=== PATIENT | male | born 1990 | race Caucasian/White ===

== ENCOUNTER 2019-07-09 05:56 | Day surgery (SDC) | payer MEDICAID ==
[2019-07-09] VITALS (9 sets, daily range): BP systolic 117–155; BP diastolic 57–75
[~2019-07-09] VITALS: Ht 172.7 cm; Wt 61.1 kg
[~2019-07-09 05:56] MED LIST: DIAZ10TA PO; DIVA125T2 PO; POLY17PO10 PO; TRIA15CR61 TOP; famotidine 20mg tablet PO ONE; ringers solution, lacted 1,000 ML IV SCH
[2019-07-09] MEDS ORDERED: MIDAZOLAM HCL 10 MG/5 ML UD cup ONE (07:13)
[2019-07-09] MEDS ORDERED: fentaNYL/PF 50MCG/1 ML 2ML syringe ONE (07:26)
[2019-07-09] MEDS ORDERED: propofol inj 20 ML IV ONE ×2 (07:28)
[2019-07-09] MEDS ORDERED: rocuronium 10mg/ml inj IV ONE (07:28)
[2019-07-09] MEDS ORDERED: dexamethasone sod phosphate 4mg/ml inj. ONE (08:00)
[2019-07-09] MEDS ORDERED: morphine 4 MG/ML inj SYRINge IV PRN ×2 (08:30)
[2019-07-09] MEDS ORDERED: ringers solution, lacted 1,000 ML IV SCH (08:30)
[2019-07-09] MEDS ORDERED: proCHLORperazine 10 MG/2 ml inj IV PRN (08:30)
[2019-07-09] MEDS ORDERED: ondansetron/PF 4mg/2ml inj IV PRN (08:30)
[2019-07-09] MEDS ORDERED: meperidine/PF 25mg/ml syringe IV PRN ×3 (08:30)
[2019-07-09 08:33] LABS: BASOPHILS % (AUTO) 0.3 % (0-1); EOSINOPHILS % (AUTO) 0.7 % (0-6); LYMPHOCYTES # (AUTO) 2.1 X10'3 (1.1-4.8); LYMPHOCYTES % (AUTO) 43.2 % (21-51); MEAN CORPUSCULAR HEMOGLOBIN 29.9 PG (27.0-31.0); MEAN CORPUSCULAR HGB CONC 33.9 g/dL (33.0-36.5); MEAN CORPUSCULAR VOLUME 88.3 FL (78-98); MEAN PLATELET VOLUME 10.5 FL (7.4-10.4); MONOCYTES # (AUTO) 0.5 X10'3 (0-0.9); MONOCYTES % (AUTO) 10.6 % (2-12); NEUTROPHILS # (AUTO) 2.2 X10'3 (1.8-7.7); NEUTROPHILS % (AUTO) 45.2 % (42-75); PRE OP HEMATOCRIT 43.3 % (42.0-52.0); PRE OP HEMOGLOBIN 14.7 g/dL (14.0-17.9); PRE OP PLATELET COUNT 111 X10'3 (140-440); RED CELL DISTRIBUTION WIDTH 13.5 % (11.5-14.5)
[2019-07-09 08:50] LABS: ALBUMIN 3.8 G/DL (3.4-5.0); ALBUMIN/GLOBULIN RATIO 1.2 (1.1-1.5); ALKALINE PHOSPHATASE 49 IU/L (46-116); BLOOD UREA NITROGEN 19 MG/DL (7-18); BUN/CREATININE RATIO 25.3 (5.4-32.0); CALCIUM 8.8 MG/DL (8.5-10.1); CHLORIDE 108 MMOL/L (99-107); CREATININE 0.75 MG/DL (0.60-1.10); PRE OP ALT 12 U/L (30-65); PRE OP ANION GAP 9 (8-16); PRE OP AST 7 U/L (10-37); PRE OP BILIRUB, TOTAL 2.1 MG/DL (0.0-1.0); PRE OP GLUCOSE 97 MG/DL (70-104); PRE OP POTASSIUM 4.2 MMOL/L (3.4-5.1); PRE OP SODIUM 140 MMOL/L (135-145); TOTAL CARBON DIOXIDE 23.5 MMOL/L (24-32); VALPROATE 69 UG/ML (50-100); eGFR > 90 ML/MIN
[2019-07-09] MEDS ORDERED: ondansetron/PF 4mg/2ml inj ONE (09:25)
[2019-07-09 09:27] LABS: LARGE PLATELETS FEW; PLATELET ESTIMATE DECREASED
--- NOTE | 2019-07-09 09:38 | NUR ---
Received from OR via , accompanied by Anesthesiologist DR BEAR and report given by Anesthesiolgist. AWAKENS TO VOICE. VITALS STABLE. NO BLEEDING NOTED. BETH PAIN.
--- NOTE | 2019-07-09 11:08 | NUR ---
AWAKE AND ORIENTED. VITALS STABLE. BETH PAIN. HOME WITH HIS FATHER AT THIS TIME.
== END 2019-07-09 11:08 | disposition home or self-care (01) ==
LOC: PAS 05:56
PROVIDERS: ATTEND Dentist
DX: K02.9 Dental caries, unspecified (principal); F71 Moderate intellectual disabilities; G40.909 Epilepsy, unspecified, not intractable, without status epilepticus; F84.0 Autistic disorder; Z79.899 Other long term (current) drug therapy
CPT/HCPCS: 36415; 41899; 80053; 80164; 85025; J1100; J2405; J2704; J3010; A4618; A7000; J7120

== ENCOUNTER 2022-09-24 15:26 | Emergency (ER) | payer OTHER, MEDICAID ==
[~2022-09-24] VITALS: Ht 177.8 cm; Wt 62.0 kg
[~2022-09-24 15:26] MED LIST changes: -famotidine 20mg tablet PO ONE; -ringers solution, lacted 1,000 ML IV SCH
[2022-09-24 15:50] VITALS: BP 128/71
== END 2022-09-24 18:08 | disposition home or self-care (01) ==
LOC: ER 15:27
DX: Z04.1 Encounter for examination and observation following transport accident (principal); V89.2XXA Person injured in unspecified motor-vehicle accident, traffic, initial encounter; Y93.89 Activity, other specified; Y92.89 Other specified places as the place of occurrence of the external cause; Y99.8 Other external cause status
CPT/HCPCS: 99282